=== PATIENT | male | born 1970 | race Two or more races ===

== ENCOUNTER 2021-10-11 18:58 | Emergency (ER) | payer BC ==
[~2021-10-11] VITALS: Ht 172.7 cm; Wt 117.0 kg
[~2021-10-11 18:58] MED LIST: CARB15DR91 OT; NEOM10SO7 OT; ONDA4TAB12 PO
[2021-10-11 19:02] VITALS: BP 193/107
[2021-10-11] MEDS ORDERED: HYDROcodone/acetaminophen 5mg/325mg tablet PO ONE (19:05)
[2021-10-11] MEDS ORDERED: orphenadrine citrate 60mg/2ml inj. IM ONE (19:05)
[2021-10-11] MEDS ORDERED: NAPR-56 PO (19:44)
[2021-10-11] MEDS ORDERED: ORPH100T2 PO (19:44)
== END 2021-10-11 21:01 | disposition home or self-care (01) ==
LOC: ER 18:59
DX: S16.1XXA Strain of muscle, fascia and tendon at neck level, initial encounter (principal); M62.838 Other muscle spasm; I10 Essential (primary) hypertension; E78.00 Pure hypercholesterolemia, unspecified; E11.9 Type 2 diabetes mellitus without complications; X50.1XXA Overexertion from prolonged static or awkward postures, initial encounter; Y93.89 Activity, other specified; Y92.89 Other specified places as the place of occurrence of the external cause; Y99.9 Unspecified external cause status
CPT/HCPCS: 96372; 99283; J2360